=== PATIENT | male | born 1970 | race Caucasian/White ===

== ENCOUNTER 2022-06-19 10:42 | Day surgery (SDC) | payer BC ==
[2022-06-19] VITALS (10 sets, daily range): BP systolic 98–119; BP diastolic 64–79
[~2022-06-19] VITALS: Ht 182.9 cm; Wt 102.2 kg
[2022-06-19] MEDS ORDERED: APIX5TAB3 PO (10:59)
[2022-06-19] MEDS ORDERED: SOTA80TA (10:59)
[2022-06-19] MEDS ORDERED: MIDAZolam 1mg/ml 10ml vial IV ONE (11:00)
[2022-06-19] MEDS ORDERED: fentaNYL/PF 50MCG/1 ML 2ML syringe IV ONE (11:00)
[2022-06-19] MEDS ORDERED: normal saline 1000ml 1,000 ML IV SCH (11:00)
[2022-06-19 11:26] LABS: ALBUMIN 3.4 G/DL (3.4-5.0); ANION GAP 7 (8-16); BLOOD UREA NITROGEN 14 MG/DL (7-18); BUN/CREATININE RATIO 15.2 (5.4-32.0); CALCIUM 8.7 MG/DL (8.5-10.1); CHLORIDE 107 MMOL/L (99-107); CREATININE 0.92 MG/DL (0.60-1.10); GLUCOSE 94 MG/DL (70-104); SODIUM 138 MMOL/L (135-145); TOTAL CARBON DIOXIDE 24.2 MMOL/L (24-32); eGFR 87 ML/MIN
== END 2022-06-19 13:35 | disposition home or self-care (01) ==
LOC: SSTAY O 10:42
PROVIDERS: ATTEND Student in an Organized Health Care Education/Training Program
DX: I48.91 Unspecified atrial fibrillation (principal); F41.0 Panic disorder [episodic paroxysmal anxiety]; Z79.01 Long term (current) use of anticoagulants; Z79.899 Other long term (current) drug therapy
CPT/HCPCS: 36415; 80048; 85610; 92960; 93005; J2250; J3010; J7030; A4620